=== PATIENT | female | born 1960 | race Caucasian/White ===

== ENCOUNTER 2016-10-25 18:22 | Emergency (ER) | payer MEDICARE, OTHER ==
--- NOTE | ~2016-10-25 | CT71 ---
[facility] A Service of [facility] & [facility] RADIOLOGY TEXT RESULTS PATIENT: ADRIAN BERNAL LOCATION: [facility] : 64 UNIT #: [id number] AGE: [address]: Daija Bhatti MD SEX: F ORDER DR: [id number] [facility] [address] [place], [place] [address] [id number] MR#: [id number] #: [id number] NAME: ADRIAN BERNAL : 1960 SEX: F STUDY DATE/TIME: 10/25/2016 20:09 UNIT: [facility] ROOM: STUDY DESCRIPTION: CT Head Wo Contrast Attending Physician: Daija Bhatti M.D. Ordering Physician: Daija Bhatti M.D. Primary Care Physician: Naye Gomes Aprn MEDICAL IMAGING REPORT This report is preliminary unless electronic signature is present EXAM Head CT without HISTORY Fell, laceration to right eye. The patient was not verbal for the scan. Fell today. The patient has a history of seizure disorder and diabetes. TECHNIQUE This CT exam was performed with one or more of the following radiation dose reduction techniques: automatic exposure control, adjustment of mA and/or kV according to patient size, and iterative reconstruction. FINDINGS Routine noncontrast head CT is reviewed. The comparison study is from 09/08/2016. The patient has had a large prior craniotomy left temporoparietal region. 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 This is chronic. Additionally, there is diffuse calvarial thickening aside from the craniotomy site. 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 Please correlate with history. This is a chronic finding. There is no displaced fracture. 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 The visualized paranasal sinuses and mastoid air cells are clear. There is no evidence for gross acute intracranial hemorrhage or extraaxial fluid collection or intracranial mass effect allowing for some motion on the study. I believe there is chronic volume loss in the posterior fossa also, again supporting a diagnosis of penitentiary antiseizure medication usage. 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 Gaze is disconjugate. [facility] A Service of [facility] RADIOLOGY TEXT RESULTS PATIENT: ADRIAN BERNAL LOCATION: [facility] : 64 UNIT #: [id number] AGE: [address]: Daija Bhatti MD SEX: F ORDER DR: TREASURE Extensive chronic abnormalities but no acute intracranial abnormality is appreciated. 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 Overall no change in the appearance of the brain since 09/08/2016. Dictated by... Lynn Trevino M.D. THIS IS AN ELECTRONICALLY VERIFIED REPORT Lynn Trevino M.D. at 10/26/2016 8:51 PM Miky TD: 10/26/2016 10:24 JOB #: [id number] MEDICAL IMAGING REPORT Page 1 of 1 COPY
[~2016-10-25 18:22] MED LIST: ACETAMINOPHEN; AMITIZA24 MCG; BACTRIM 400-801 TA1; CALCIUM + D 6001 TA1; CALCIUM 5001 TAB PO; CALCIUM CIT-VI1 EAC2 PO; CETAPHIL473 ML TP; CLARITIN10 M2 PO; DIASTAT10 MG PR; DIAZEPAM; E.E.S.-GRA200 MG/5 M PO; FAST RELIEF LAX10 MG RC; GLUCOTROL; GLUCOTROL XL PO; KCL PO; KEPPRA1000 MG; KEPPRA250 MG PO; KLONOPIN; KLONOPIN0.5 MG PO; LACTULOSE10 G/15 M1 PO; LACTULOSE10 G/15 ML; LAMICTAL; LAMICTAL100 MG PO; LAMICTAL25 MG PO; LAMOTRIGINE200 MG; LEXAPRO; LOVASTATIN20 MG; MEVACOR; MIACALCIN4 ML; MILK OF MA800 MG/5 M; MILK OF MAGNESIA; MILK OF MAGNESIA PO; MIRALAX17 G1; MIRALAX255 GM PO; NEXIUM PO; NOVOLIN R100 UNITS/; ONFI10 MG PO; OSCAL; PRILOSEC; PRILOSEC20 MG; SENNA CONCENTR8.6 MG; SENOKOT60 M1 PO; TOPAMAX; TOPAMAX200 MG; TOPAMAX200 MG PO; TRICOR PO; TYLENOL325 M1 PO; VALIUM2 MG; VIMPAT100 MG PO; VIMPAT50 MG PO; VITAMIN C; VITAMIN D1000 UNIT PO; VITAMIN D400 UNI2; ZELNORM; ZOFRAN SL; ZONEGRAN100 MG; [UNRECOGNIZED DRUG - OTHER] TP
[2017-04-14] MEDS ORDERED: DILANTIN PO (13:15)
[2017-04-14] MEDS ORDERED: LAMICTAL PO (13:16)
[2017-04-14] MEDS ORDERED: VALIUM2 MG PO (13:16)
[2017-04-14] MEDS ORDERED: TOPAMAX (13:16)
[2017-04-14] MEDS ORDERED: ZOCOR PO (13:16)
[2017-04-14] MEDS ORDERED: KLONOPIN0.5 MG PO (13:16)
[2017-04-14] MEDS ORDERED: ZONEGRAN100 M1 (13:17)
[2017-04-14] MEDS ORDERED: GLUCOTROL XL5 M1 PO (13:17)
[2017-04-14] MEDS ORDERED: LEXAPRO PO (13:18)
[2017-04-14] MEDS ORDERED: VITAMIN C500 MG PO (13:18)
[2017-04-14] MEDS ORDERED: PROTONIX PO (13:18)
== END 2016-10-25 21:00 | disposition home or self-care (01) ==
LOC: CED 18:22
DX: S01.111A Laceration without foreign body of right eyelid and periocular area, initial encounter (principal); S60.229A Contusion of unspecified hand, initial encounter; E11.9 Type 2 diabetes mellitus without complications; Z79.899 Other long term (current) drug therapy; W05.0XXA Fall from non-moving wheelchair, initial encounter; Y92.129 Unspecified place in nursing home as the place of occurrence of the external cause
CPT/HCPCS: 12013; 70450; 99284

== ENCOUNTER → 2016-12-18 | Outpatient (CLI) | payer MEDICARE, OTHER ==
[~2016-12-18] MED LIST changes: +DILANTIN PO; +GLUCOTROL XL5 M1 PO; +LAMICTAL PO; +LEXAPRO PO; +PROTONIX PO; +VALIUM2 MG PO; +VITAMIN C500 MG PO; +ZOCOR PO; +ZONEGRAN100 M1
== END | disposition home or self-care (01) ==
LOC: CSSDAY 09:32
DX: M81.0 Age-related osteoporosis without current pathological fracture (principal); Z79.899 Other long term (current) drug therapy
CPT/HCPCS: 96372; J0897